=== PATIENT | male | born 1990 | race Caucasian/White ===

== ENCOUNTER 2023-02-26 09:08 | Outpatient (CLI) | payer MEDICARE, MEDICAID, SELFPAY | END 2023-02-26 09:09 | disposition home or self-care (01) | LOC: AMB 03-08 09:54 | PROVIDERS: Visit Provider Emergency Medicine Emergency Medical Services | DX: F91.9 Conduct disorder, unspecified (principal) | CPT/HCPCS: A0425; A0429 ==

== ENCOUNTER 2023-03-04 16:26 | Outpatient (CLI) | payer MEDICARE, MEDICAID, SELFPAY | END 2023-03-04 16:27 | disposition home or self-care (01) | PROVIDERS: Visit Provider Family Medicine | DX: F91.9 Conduct disorder, unspecified (principal); R45.851 Suicidal ideations | CPT/HCPCS: A0425; A0429 ==

== ENCOUNTER 2023-05-28 13:23 | Outpatient (CLI) | payer MEDICARE, MEDICAID, SELFPAY | END 2023-05-28 13:24 | disposition home or self-care (01) | PROVIDERS: Visit Provider Student in an Organized Health Care Education/Training Program | DX: F91.9 Conduct disorder, unspecified (principal) | CPT/HCPCS: A0425; A0429 ==

== ENCOUNTER 2023-05-28 14:14 | Emergency (ER) | payer MEDICARE, MEDICAID, SELFPAY ==
[2023-05-28] VITALS (10 sets, daily range): BP systolic 125–131; BP diastolic 81–84; PULSE 54–73; RESP 12–16; TEMP 36.6–36.8; O2SAT 99–100; BMI 37.7
[2023-05-28] MEDS: OLANZapine 5 MG TAB.RAPDIS PO (14:44)
--- NOTE | 2023-05-28 15:06 | ED.GENADULT ---
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 Squamous Epith Cells None (None-Few) Urine Bacteria None (None) Salicylates < 1.0 L (1.0-10) mg/dL Urine Opiates Screen Negative (Negative) Ur Oxycodone Screen Negative (Negative) Urine Methadone Screen Negative (Negative) Ur Propoxyphene Screen Negative (Negative) Acetaminophen < 10.0 L (10.0-30.0) ug/mL Ur Barbiturates Screen Negative (Negative) U Tricyclic Antidepress Negative (Negative) Ur Phencyclidine Scrn Negative (Negative) Ur Amphetamines Screen Negative (Negative) U Methamphetamines Scrn Negative (Negative) U Benzodiazepines Scrn Negative (Negative) Urine Cocaine Screen Negative (Negative) U Marijuana (THC) Screen Negative (Negative) Ur Drug Screen Comment See Note Ethyl Alcohol < 0.01 L (0.01-0.03) % <Jamia Last MD - Last Filed: 06/01/23 07:09> Lab Results 05/28/23 05/28/23 Range/Units 17:30 18:00 WBC 6.49 (4.50-11.00) K/uL RBC 4.67 (4.30-5.90) m/uL Hgb 13.5 (13.5-17.5) gm/dL Hct 40.8 (37.0-53.0) % MCV 87 (80-100) fL MCH 29 (26-34) pg MCHC 33 (32-36) gm/dL RDW Coeff of Sherie 11.8 (11.5-15.5) % Plt Count 274 (140-440) K/uL Neut % (Auto) 56.0 (42.0-72.0) % Lymph % (Auto) 35.0 (20-44) % Ware % (Auto) 5.9 (0.0-11.0) % Eos % (Auto) 2.3 (0.0-7.0) % Baso % (Auto) 0.5 (0.0-3.0) % Neut # (Auto) 3.64 (1.7-7.0) K/uL Lymph # (Auto) 2.27 (0.90-2.90) K/uL Ware # (Auto) 0.40 (0.00-0.90) K/UL Eos # (Auto) 0.15 (0.00-0.50) K/uL Baso # (Auto) 0.03 (0.00-0.30) K/uL Abs Immat Gran (auto) 0.02 (0.00-0.30) K/uL Imm/Tot Granulo (auto) 0.3 % Sodium 143 (135-149) mmol/L Potassium 4.4 (3.6-5.1) mmol/L Chloride 104 (96-114) mmol/L Carbon Dioxide 28 (20-32) mmol/L Anion Gap 11 (7-15) mEq/L BUN 13 (5-24) mg/dL Creatinine 1.0 (0.5-1.5) mg/dL Estimated Creat Clear 122.16 Estimated GFR 102 ml/min Glucose 109 (60-115) mg/dL Calcium 9.6 (8.4-10.6) mg/dL Urine Color Yellow (Yellow) Urine Appearance Clear (Clear) Urine pH 6.0 (5.0-8.5) Ur Specific Ary 1.015 (1.000-1.030) Urine Protein Negative (Negative) Urine Glucose (UA) Negative (Negative) Urine Ketones Negative (Negative) Urine Blood Negative (Negative) Urine Nitrite Negative (Negative) Urine Bilirubin Negative (Negative) Urine Urobilinogen 0.2 (0.2-1.0) Ur Leukocyte Esterase Negative (Negative) Urine RBC 0-2 (0-2) Urine WBC 0-2 (0-5) Urine WBC Clumps None (None) Ur Squamous Epith Cells None (None-Few) Urine Bacteria None (None) Salicylates < 1.0 L (1.0-10) mg/dL Urine Opiates Screen Negative (Negative) Ur Oxycodone Screen Negative (Negative) Urine Methadone Screen Negative (Negative) Ur Propoxyphene Screen Negative (Negative) Acetaminophen < 10.0 L (10.0-30.0) ug/mL Ur Barbiturates Screen Negative (Negative) U Tricyclic Antidepress Negative (Negative) Ur Phencyclidine Scrn Negative (Negative) Ur Amphetamines Screen Negative (Negative) U Methamphetamines Scrn Negative (Negative) U Benzodiazepines Scrn Negative (Negative) Urine Cocaine Screen Negative (Negative) U Marijuana (THC) Screen Negative (Negative) Ur Drug Screen Comment See Note Ethyl Alcohol < 0.01 L (0.01-0.03) % <Lina Hitchcock MD - Last Filed: 05/29/23 16:03> Lab Results 05/28/23 05/28/23 Range/Units 17:30 18:00 WBC 6.49 (4.50-11.00) K/uL RBC 4.67 (4.30-5.90) m/uL Hgb 13.5 (13.5-17.5) gm/dL Hct 40.8 (37.0-53.0) % MCV 87 (80-100) fL MCH 29 (26-34) pg MCHC 33 (32-36) gm/dL RDW Coeff of Sherie 11.8 (11.5-15.5) % Plt Count 274 (140-440) K/uL Neut % (Auto) 56.0 (42.0-72.0) % Lymph % (Auto) 35.0 (20-44) % Ware % (Auto) 5.9 (0.0-11.0) % Eos % (Auto) 2.3 (0.0-7.0) % Baso % (Auto) 0.5 (0.0-3.0) % Neut # (Auto) 3.64 (1.7-7.0) K/uL Lymph # (Auto) 2.27 (0.90-2.90) K/uL Ware # (Auto) 0.40 (0.00-0.90) K/UL Eos # (Auto) 0.15 (0.00-0.50) K/uL Baso # (Auto) 0.03 (0.00-0.30) K/uL Abs Immat Gran (auto) 0.02 (0.00-0.30) K/uL Imm/Tot Granulo (auto) 0.3 % Sodium 143 (135-149) mmol/L Potassium 4.4 (3.6-5.1) mmol/L Chloride 104 (96-114) mmol/L Carbon Dioxide 28 (20-32) mmol/L Anion Gap 11 (7-15) mEq/L BUN 13 (5-24) mg/dL Creatinine 1.0 (0.5-1.5) mg/dL Estimated Creat Clear 122.16 Estimated GFR 102 ml/min Glucose 109 (60-115) mg/dL Calcium 9.6 (8.4-10.6) mg/dL Urine Color Yellow (Yellow) Urine Appearance Clear (Clear) Urine pH 6.0 (5.0-8.5) Ur Specific Ary 1.015 (1.000-1.030) Urine Protein Negative (Negative) Urine Glucose (UA) Negative (Negative) Urine Ketones Negative (Negative) Urine Blood Negative (Negative) Urine Nitrite Negative (Negative) Urine Bilirubin Negative (Negative) Urine Urobilinogen 0.2 (0.2-1.0) Ur Leukocyte Esterase Negative (Negative) Urine RBC 0-2 (0-2) Urine WBC 0-2 (0-5) Urine WBC Clumps None (None) Ur Squamous Epith Cells None (None-Few) Urine Bacteria None (None) Salicylates < 1.0 L (1.0-10) mg/dL Urine Opiates Screen Negative (Negative) Ur Oxycodone Screen Negative (Negative) Urine Methadone Screen Negative (Negative) Ur Propoxyphene Screen Negative (Negative) Acetaminophen < 10.0 L (10.0-30.0) ug/mL Ur Barbiturates Screen Negative (Negative) U Tricyclic Antidepress Negative (Negative) Ur Phencyclidine Scrn Negative (Negative) Ur Amphetamines Screen Negative (Negative) U Methamphetamines Scrn Negative (Negative) U Benzodiazepines Scrn Negative (Negative) Urine Cocaine Screen Negative (Negative) U Marijuana (THC) Screen Negative (Negative) Ur Drug Screen Comment See Note Ethyl Alcohol < 0.01 L (0.01-0.03) % <Tanya Gallo MD - Last Filed: 05/31/23 00:01> Lab Results 05/28/23 05/28/23 Range/Units 17:30 18:00 WBC 6.49 (4.50-11.00) K/uL RBC 4.67 (4.30-5.90) m/uL Hgb 13.5 (13.5-17.5) gm/dL Hct 40.8 (37.0-53.0) % MCV 87 (80-100) fL MCH 29 (26-34) pg MCHC 33 (32-36) gm/dL RDW Coeff of Sherie 11.8 (11.5-15.5) % Plt Count 274 (140-440) K/uL Neut % (Auto) 56.0 (42.0-72.0) % Lymph % (Auto) 35.0 (20-44) % Ware % (Auto) 5.9 (0.0-11.0) % Eos % (Auto) 2.3 (0.0-7.0) % Baso % (Auto) 0.5 (0.0-3.0) % Neut # (Auto) 3.64 (1.7-7.0) K/uL Lymph # (Auto) 2.27 (0.90-2.90) K/uL Ware # (Auto) 0.40 (0.00-0.90) K/UL Eos # (Auto) 0.15 (0.00-0.50) K/uL Baso # (Auto) 0.03 (0.00-0.30) K/uL Abs Immat Gran (auto) 0.02 (0.00-0.30) K/uL Imm/Tot Granulo (auto) 0.3 % Sodium 143 (135-149) mmol/L Potassium 4.4 (3.6-5.1) mmol/L Chloride 104 (96-114) mmol/L Carbon Dioxide 28 (20-32) mmol/L Anion Gap 11 (7-15) mEq/L BUN 13 (5-24) mg/dL Creatinine 1.0 (0.5-1.5) mg/dL Estimated Creat Clear 122.16 Estimated GFR 102 ml/min Glucose 109 (60-115) mg/dL Calcium 9.6 (8.4-10.6) mg/dL Urine Color Yellow (Yellow) Urine Appearance Clear (Clear) Urine pH 6.0 (5.0-8.5) Ur Specific Ary 1.015 (1.000-1.030) Urine Protein Negative (Negative) Urine Glucose (UA) Negative (Negative) Urine Ketones Negative (Negative) Urine Blood Negative (Negative) Urine Nitrite Negative (Negative) Urine Bilirubin Negative (Negative) Urine Urobilinogen 0.2 (0.2-1.0) Ur Leukocyte Esterase Negative (Negative) Urine RBC 0-2 (0-2) Urine WBC 0-2 (0-5) Urine WBC Clumps None (None) Ur Squamous Epith Cells None (None-Few) Urine Bacteria None (None) Salicylates < 1.0 L (1.0-10) mg/dL Urine Opiates Screen Negative (Negative) Ur Oxycodone Screen Negative (Negative) Urine Methadone Screen Negative (Negative) Ur Propoxyphene Screen Negative (Negative) Acetaminophen < 10.0 L (10.0-30.0) ug/mL Ur Barbiturates Screen Negative (Negative) U Tricyclic Antidepress Negative (Negative) Ur Phencyclidine Scrn Negative (Negative) Ur Amphetamines Screen Negative (Negative) U Methamphetamines Scrn Negative (Negative) U Benzodiazepines Scrn Negative (Negative) Urine Cocaine Screen Negative (Negative) U Marijuana (THC) Screen Negative (Negative) Ur Drug Screen Comment See Note Ethyl Alcohol < 0.01 L (0.01-0.03) % <Sushant Cardenas MD - Last Filed: 05/30/23 14:04> Discharge Plan Discharge Clinical Impression: Aggressive behavior, Developmental disability <Jamia Last MD - Last Filed: 06/01/23 07:09> Patient Disposition: Home w/ Parent or Adult <Jamia Last MD - Last Filed: 06/01/23 07:09> Condition: Stable <Jamia Last MD - Last Filed: 06/01/23 07:09> Additional Instructions: Okay to return to the senior living with the following medications adjusted: Zyprexa 10 mg twice daily, Lamictal 25 mg twice daily, and Ativan 1 mg as needed for agitation. Prescription for these medications as provided. Follow-up with psychiatry, Vj Avery, at [facility] next week. Call [phone] for appointment. <Jamia Last MD - Last Filed: 06/01/23 07:09> Prescriptions: New olanzapine [Zyprexa] 10 mg tablet 10 mg PO BID Qty: 60 2RF lamotrigine [Lamictal] 25 mg tablet 25 mg PO BID 7 Days Qty: 14 0RF lorazepam [Ativan] 1 mg tablet 1 mg PO TID PRNQty: 30 0RF No Action olanzapine 5 mg tablet 5 mg PO BID docusate sodium 100 mg capsule 100 mg PO DAILY clindamycin phosphate 1 % lotion topical Mag 64 64 mg tablet,delayed release (DR/EC) 64 mg PO DAILY dapsone 7.5 % gel with pump topical sennosides [senna] 8.6 mg tablet 17.2 mg PO DAILY trazodone 100 mg tablet 100 mg PO QPM melatonin 3 mg capsule 6 mg PO QHS calcium polycarbophil [Fiber (calcium polycarbophil)] 625 mg tablet 1,250 mg PO DAILY psyllium husk (with sugar) [Reguloid (psyllium husk-sucro)] 3 gram/7 gram powder 1 tsp PO DAILY <Jamia Last MD - Last Filed: 06/01/23 07:09> Follow Up/Referrals: Provider,Not a Local [Primary Care Provider] - <Jamia Last MD - Last Filed: 06/01/23 07:09> Stand Alone Forms: MyHealth Info Instructions <Jamia Last MD - Last Filed: 06/01/23 07:09>
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
--- NOTE | 2023-05-28 16:51 | ED.NURSE ---
1615: Pt ate 100% of meal. More fluids provided. Pt calm and verbalizes need to use BR. Verbal contract for no physical aggression if released from restraints. Pt accompanied to BR by alf staff x2 and security. Pt calm and cooperative and ambulated well. Pt returned to , applied only 2 restraints per MD, alf staff/director in agreement with 2 restraint plan. Only R wrist and L ankle restraints in place. Warm blanket provided for comfort. Pt denies further needs at this time.
--- NOTE | 2023-05-28 17:11 | ED.NURSE ---
Daniel detention director, Isabel updated with recommended dispo by KULDIP and .
[2023-05-28 17:36] LABS: Basophils Absolute Auto 0.03 K/uL (0.00-0.30); Basophils Percent Auto 0.5 % (0.0-3.0); Eosinophils Absolute Auto 0.15 K/uL (0.00-0.50); Eosinophils Percent Auto 2.3 % (0.0-7.0); Hematocrit 40.8 % (37.0-53.0); Hemoglobin* 13.5 gm/dL (13.5-17.5); Immature Granulocytes Abs Auto 0.02 K/uL (0.00-0.30); Immature Granulocytes Pct Auto 0.3 %; Lymphocytes Absolute Auto 2.27 K/uL (0.90-2.90); Mean Corpuscular HGB Conc 33 gm/dL (32-36); Mean Corpuscular Hemoglobin 29 pg (26-34); Mean Corpuscular Volume 87 fL (80-100); Monocytes Percent Auto 5.9 % (0.0-11.0); Neutrophils Absolute Auto 3.64 K/uL (1.7-7.0); Platelet Count* 274 K/uL (140-440); RDW Coefficient of Variation % 11.8 % (11.5-15.5); Red Blood Count 4.67 m/uL (4.30-5.90); White Blood Count* 6.49 K/uL (4.50-11.00)
[2023-05-28 17:50] LABS: Chloride* 104 mmol/L (96-114); Potassium* 4.4 mmol/L (3.6-5.1); Sodium* 143 mmol/L (135-149)
[2023-05-28 17:52] LABS: Slide Review Reflex No
[2023-05-28 17:53] LABS: Acetaminophen* < 10.0 ug/mL (10.0-30.0); Anion Gap 11 mEq/L (7-15); Blood Urea Nitrogen* 13 mg/dL (5-24); Carbon Dioxide* 28 mmol/L (20-32); Est. Creatinine Clearance* 122.16; Estimated Glomerular Filt Rate 102 ml/min; Ethanol* < 0.01 % (0.01-0.03); Glucose* 109 mg/dL (60-115); Salicylate* < 1.0 mg/dL (1.0-10)
[2023-05-28 17:54] LABS: Calcium* 9.6 mg/dL (8.4-10.6)
[2023-05-28 18:22] LABS: Appearance Urine Clear (Clear); Bilirubin Urine Negative (Negative); Blood Urine Negative (Negative); Color Urine Yellow (Yellow); Glucose Urine Negative (Negative); Ketones Urine Negative (Negative); Leukocyte Esterase Urine Negative (Negative); Nitrite Urine Negative (Negative); Protein Urine Negative (Negative); Specific Gravity Urine 1.015 (1.000-1.030); Urobilinogen Urine 0.2 (0.2-1.0)
[2023-05-28 18:29] LABS: Amphetamine Screen Urine Negative (Negative); Barbiturate Screen Urine Negative (Negative); Benzodiazepines Screen Urine Negative (Negative); Cannabinoid Screen Urine Negative (Negative); Cocaine Screen Urine Negative (Negative); Methadone Screen Urine Negative (Negative); Methamphetamines Screen Urine Negative (Negative); Opiate Screen Urine Negative (Negative); Oxycodone Screen Urine Negative (Negative); Phencyclidine Screen Urine Negative (Negative); Tricyclic Antidepressant Urine Negative (Negative)
[2023-05-28 18:35] LABS: RBC Urine 0-2 (0-2); WBC Urine 0-2 (0-5)
--- NOTE | 2023-05-28 19:30 | ED.NURSE ---
1830: All restraints removed. Pt agreeable to plan of keeping 3 skilled nursing staff members in room for safety. Pt remains calm, cooperative. Cooperative with vital signs. Snack and fluids provided. Denies further needs at this time.
[2023-05-28] MEDS: TRAZODONE HCL 50 MG TABLET 100 MG PO (20:36)
[2023-05-28] MEDS: MELATONIN 3 MG TABLET 6 MG PO (20:36)
--- NOTE | 2023-05-28 20:41 | ED.NURSE ---
Pt provided M/S bed in ED RM. Snack provided, fluids offered. Pt remains calm, cooperative. Cooperative with HS meds.
--- NOTE | 2023-05-28 20:48 | ED.NURSE ---
Report given to MIGUELITO Fairchild.
--- NOTE | 2023-05-28 22:09 | ED.NURSE ---
pt staff member shift change. report given among staff. pt remained sleeping.
--- NOTE | 2023-05-29 07:55 | ED.NURSE ---
Called [facility] to follow up on potential placement, coordinator reports he was declined for admission.
--- NOTE | 2023-05-29 08:40 | ED.NURSE ---
Addendum entered by Gabbie Pereira RN 05/29/23 10:29: Only other site in [place] to accept patients with aggression with an available bed is [facility] and this site declined patient due to high acuity. Original Note: [facility]ed [facility]: No bed availability.
--- NOTE | 2023-05-29 08:48 | ED.NURSE ---
Patient up, asked to use bathroom and also requested breakfast.
[2023-05-29] MEDS: OLANZapine 5 MG TAB.RAPDIS PO ×3 (09:15→20:58)
[2023-05-29] MEDS: DOCUSATE SODIUM 100 MG CAPSULE PO (09:48)
[2023-05-29] MEDS: MAGNESIUM OXIDE 400 MG TABLET PO (09:48)
[2023-05-29] MEDS: PSYLLIUM HUSK (WITH SUGAR) 12 GM PACKET PO (09:48)
[2023-05-29] MEDS: SENNOSIDES 1 TAB TABLET 2 TAB PO (09:49)
--- NOTE | 2023-05-29 10:48 | ED.NURSE ---
Spoke with Isabel, home health care physician of [facility]. Explained inability to find a hospital that would accept patient and in lieu of this development patient seems best served returning back to his home. Isabel is in agreement with plan and requests that patient be transferred via EMS as no van is available.
[2023-05-29] MEDS: OLANZapine 5 MG/ML inj 10 MG IM (12:45)
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
--- NOTE | 2023-05-29 15:13 | ED.NURSE ---
Patient participating with DEC.
--- NOTE | 2023-05-29 19:10 | ED.NURSE ---
Report given to MIGUELITO Tinsley. Patient sleeping at time of shift change. No behavioral issues following PRN administration of Zyprexa.
[2023-05-29] MEDS: MELATONIN 3 MG TABLET 6 MG PO (20:57)
[2023-05-29 20:58] VITALS: BP 125/73; PULSE 74; RESP 16; O2SAT 97
[2023-05-29] MEDS: TRAZODONE HCL 50 MG TABLET 100 MG PO (20:58)
--- NOTE | 2023-05-29 21:17 | PC.NURSE ---
patient cooperative with VS and HS meds. patient ambulatory to BR accompanied by senior care staff. patient back in bed. offered HS snack and patient declined at this time.
[2023-05-30] VITALS: PULSE 76; RESP 16; O2SAT 96
[2023-05-30 02:00] VITALS: RESP 18
[2023-05-30 04:00] VITALS: RESP 16
[2023-05-30 06:03] VITALS: RESP 18
--- NOTE | 2023-05-30 06:17 | PC.NURSE ---
patient slept almost entire shift, RR even and unlabored. [facility] staff in room entire shift.
--- NOTE | 2023-05-30 09:52 | ED.NURSE ---
Dr. Cardenas talking to Millicent (co-guardian) about pending disposition.
[2023-05-30] MEDS: MAGNESIUM OXIDE 400 MG TABLET PO (10:15)
[2023-05-30] MEDS: PSYLLIUM HUSK (WITH SUGAR) 12 GM PACKET PO (10:15)
[2023-05-30] MEDS: DOCUSATE SODIUM 100 MG CAPSULE PO (10:15)
[2023-05-30] MEDS: OLANZapine 5 MG TAB.RAPDIS PO ×2 (10:15→10:26)
[2023-05-30] MEDS: SENNOSIDES 1 TAB TABLET 2 TAB PO (10:15)
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
[2023-05-30] MEDS: lamoTRIgine 25 MG TABLET 50 MG PO (15:36)
== END 2023-05-30 15:50 | disposition home or self-care (01) ==
PROVIDERS: Emergency Provider Emergency Medicine
DX: F91.2 Conduct disorder, adolescent-onset type (principal); F79 Unspecified intellectual disabilities
CPT/HCPCS: 36415; 80048; 80143; 80179; 80306; 81001; 82077; 85025; 94761; 96372; 99284; A0425; A0428; A9270; S0166

== ENCOUNTER 2023-05-30 15:55 | Outpatient (CLI) | payer MEDICARE, MEDICAID, SELFPAY | END 2023-05-30 15:56 | disposition home or self-care (01) | LOC: AMB 05-31 10:36 | PROVIDERS: Visit Provider Emergency Medicine Emergency Medical Services | DX: F91.9 Conduct disorder, unspecified (principal) | CPT/HCPCS: A0425; A0428 ==

== ENCOUNTER 2023-05-30 18:24 | Outpatient (CLI) | payer MEDICARE, MEDICAID, SELFPAY | END 2023-05-30 18:25 | disposition home or self-care (01) | LOC: AMB 05-31 10:41 | PROVIDERS: Visit Provider Emergency Medicine Emergency Medical Services | DX: F91.9 Conduct disorder, unspecified (principal) | CPT/HCPCS: A0425; A0428; A0429 ==

== ENCOUNTER 2023-07-13 13:27 | Outpatient (CLI) | payer MEDICARE, MEDICAID, SELFPAY | END 2023-07-13 13:28 | disposition home or self-care (01) | LOC: AMB 07-17 07:49 | PROVIDERS: Visit Provider Family Medicine | DX: F91.9 Conduct disorder, unspecified (principal) | CPT/HCPCS: A0425; A0427 ==